=== PATIENT | female | born 1945 | race Caucasian/White ===

== ENCOUNTER 2017-05-31 17:06 | Emergency (ER) | payer OTHER ==
[~2017-05-31] VITALS: Ht 162.6 cm; Wt 105.1 kg
[~2017-05-31 17:06] MED LIST: AMLODIPINE BESYL5 MG PO; ASPIRIN81 M2 PO; BENICAR20 MG PO; DIAZEPAM10 MG PO; DIFICID200 MG PO; DILAUDID4 MG PO; DOCUSATE SODIU100 MG PO; DUONEB 2.5-0.5 M3 ML AEROSOL; ELIQUIS5 MG PO; FLORASTOR250 MG PO; HYDROCODON-ACE1 EAC8 PO; IRBESARTAN300 MG PO; LEVOTHYROXINE75 MCG PO; LOSARTAN POTAS100 MG PO; MELOXICAM7.5 MG PO; MILK OF MAGNESI10 ML PO; OXYCODONE HCL5 MG PO; PANTOPRAZOLE SO40 MG PO; PROTONIX40 MG PO; SERTRALINE HCL50 MG PO; SYNTHROID75 MCG PO; TEMAZEPAM30 MG PO; VICODIN ES 7.51 EAC1 PO; ZOFRAN4 MG PO; ZOLPIDEM TARTRAT5 MG PO
[2017-05-31] MEDS ORDERED: NAPROSYN500 MG PO (21:00)
[2017-05-31 21:51] VITALS: BP 141/83
== END 2017-05-31 21:52 | disposition home or self-care (01) ==
LOC: EME 17:06
DX: I80.8 Phlebitis and thrombophlebitis of other sites (principal); Z86.718 Personal history of other venous thrombosis and embolism; Z79.01 Long term (current) use of anticoagulants; I10 Essential (primary) hypertension; F32.9 Major depressive disorder, single episode, unspecified; F41.9 Anxiety disorder, unspecified; K21.9 Gastro-esophageal reflux disease without esophagitis; Z87.891 Personal history of nicotine dependence
CPT/HCPCS: 93971; 99281; 99284

== ENCOUNTER 2017-07-27 10:34 | Inpatient (IN) | payer OTHER ==
[~2017-07-27] VITALS: Ht 162.6 cm; Wt 104.0 kg
[~2017-07-27 10:34] MED LIST changes: +NAPROSYN500 MG PO
[2017-07-27 11:15] LABS: HEMATOCRIT 39.7 % (36.0-46.0); HEMOGLOBIN 12.4 G/DL (11.9-15.5); MCH 28.3 PG (29.0-34.0); MCHC 31.2 G/DL (30.0-36.0); MCV 90.6 FL (83-99); NRBC (%) 0.6 /100 WBC (0-0); PLATELET COUNT 333 K/uL (156-360); RBC DIS.WIDTH-SD 47.9 % (39-53); RED BLOOD COUNT 4.38 M/uL (3.80-5.20); WHITE BLOOD COUNT 8.5 K/uL (4.1-10.2)
[2017-07-27 11:24] LABS: ALBUMIN 4.4 g/dL (3.2-4.8); CHLORIDE 103 mEq/L (99-109); POTASSIUM 4.8 mEq/L (3.7-5.4); SODIUM 141 mEq/L (136-147)
[2017-07-27 11:25] LABS: MAGNESIUM 2.1 mg/dL (1.3-2.7)
[2017-07-27 11:26] LABS: GLUCOSE 100 mg/dL (70-99); TOTAL PROTEIN 7.9 g/dL (6.4-8.3)
[2017-07-27 11:28] LABS: TOTAL BILIRUBIN 0.4 mg/dL (0.0-1.0)
[2017-07-27 11:30] LABS: ALKALINE PHOSPHATASE 94 IU/L (3-129); CREATININE 0.9 mg/dL (0.6-1.3); GFR ESTIMATE (CALCULATED) > 59 mL/min/
[2017-07-27 11:31] LABS: UREA NITROGEN (BUN) 12 mg/dL (9-23)
[2017-07-27 11:32] LABS: AST (GOT) 14 IU/L (2-34)
[2017-07-27 11:33] LABS: ALT (GPT) 9 IU/L (3-49)
[2017-07-27 11:35] LABS: TROP-I INTERPRETATION NEGATIVE; TROPONIN-I < 0.01 ng/mL (0.0-0.30)
[2017-07-27 11:56] LABS: ABS NEUTROPHIL COUNT 6.9; ANISOCYTOSIS 2+; ATYPICAL LYMPHOCYTE 2.6 %; BAND NEUTROPHILS 6.1 % (0-8.0); BASOPHILS 0.9 %; EOSINOPHIL ABS CT 0.1; EOSINOPHILS 0.9 % (0-5.0); LYMPHOCYTES 3.5 % (15.0-45.0); MACROCYTES 1+; METAMYELOCYTES 1.8 %; MICROCYTOSIS 1+; MONOCYTES 8.8 % (0-9.0); OVALOCYTES 1+; PLAT.SUFFICIENCY INCREASED; POLYCHROMASIA 2+; SEG.NEUTROPHILS 75.4 % (46.0-76.0); TEAR DROP CELLS 1+
[2017-07-27] MEDS ORDERED: VALIUM10 MG PO (14:19)
[2017-07-27] MEDS ORDERED: ULTRAM50 MG PO (14:20)
[2017-07-27] MEDS ORDERED: ROBITUSSIN100 MG/5 M PO (14:21)
[2017-07-27] MEDS ORDERED: AMOXICILLIN500 M1 PO (14:21)
[2017-07-27] MEDS ORDERED: LO-DOSE ASPIRIN81 M2 PO (14:21)
[2017-07-27] MEDS ORDERED: AVAPRO300 MG PO (14:21)
[2017-07-27] MEDS ORDERED: LOPID600 MG PO (14:22)
[2017-07-27 18:40] VITALS: BP 127/95
[2017-07-27 20:49] VITALS: BP 154/67
[2017-07-27 23:52] VITALS: BP 141/86
[2017-07-28 03:37] VITALS: BP 136/78
[2017-07-28 07:41] LABS: TROP-I INTERPRETATION NEGATIVE; TROPONIN-I < 0.01 ng/mL (0.0-0.30)
[2017-07-28 08:33] VITALS: BP 163/66
[2017-07-28 10:26] LABS: BASOPHIL (%) 0.3 % (0-1); EOSINOPHIL (%) 0 % (0-5); HEMATOCRIT 38.2 % (36.0-46.0); HEMOGLOBIN 11.6 G/DL (11.9-15.5); IMMATURE GRANULOCYTE (%) 4.7 % (0.0-0.7); LYMPHOCYTE (%) 5.4 % (15-42); LYMPHOCYTE COUNT 0.4 K/uL (1.0-2.8); MCHC 30.4 G/DL (30.0-36.0); MCV 92.3 FL (83-99); MONOCYTE (%) 1.4 % (3-12); MONOCYTE COUNT 0.1 K/uL (0-0.8); NEUTROPHIL (%) 88.2 % (45-76); PLATELET COUNT 350 K/uL (156-360); RBC DIS.WIDTH-SD 49.5 % (39-53); RED BLOOD COUNT 4.14 M/uL (3.80-5.20); WHITE BLOOD COUNT 7.9 K/uL (4.1-10.2)
[2017-07-28 10:38] LABS: CHLORIDE 101 MEQ/L (99-109); CREATININE 0.9 MG/DL (0.6-1.3); GFR ESTIMATE (CALCULATED) > 59 mL/min/; GLUCOSE 143 mg/dL (70-99); POTASSIUM 4.9 MEQ/L (3.7-5.4); SODIUM 140 MEQ/L (136-147); UREA NITROGEN (BUN) 15 mg/dL (9-23)
[2017-07-28 15:51] VITALS: BP 126/68
[2017-07-28 19:32] VITALS: BP 135/63
[2017-07-28 23:04] VITALS: BP 160/70
[2017-07-29 03:22] VITALS: BP 127/60
[2017-07-29 07:15] VITALS: BP 151/71
[2017-07-29 15:24] VITALS: BP 158/75
[2017-07-29 19:12] VITALS: BP 142/71
[2017-07-29 23:32] VITALS: BP 133/68
[2017-07-30 03:48] VITALS: BP 168/78
[2017-07-30 05:00] VITALS: BP 154/75
[2017-07-30 07:24] VITALS: BP 149/68
[2017-07-30 15:36] VITALS: BP 140/65
[2017-07-31 08:33] VITALS: BP 148/74
[2017-07-31 09:38] LABS: HEMATOCRIT 40.7 % (36.0-46.0); HEMOGLOBIN 12.3 G/DL (11.9-15.5); MCH 27.7 PG (29.0-34.0); MCHC 30.2 G/DL (30.0-36.0); MCV 91.7 FL (83-99); PLATELET COUNT 376 K/uL (156-360); RBC DIS.WIDTH-CV 15.4 % (11.8-14.6); RBC DIS.WIDTH-SD 51.4 % (39-53); RED BLOOD COUNT 4.44 M/uL (3.80-5.20); WHITE BLOOD COUNT 14.4 K/uL (4.1-10.2)
[2017-07-31 10:26] LABS: CHLORIDE 100 MEQ/L (99-109); CREATININE 0.7 MG/DL (0.6-1.3); GFR ESTIMATE (CALCULATED) > 59 mL/min/; GLUCOSE 178 mg/dL (70-99); POTASSIUM 4.5 MEQ/L (3.7-5.4); SODIUM 139 MEQ/L (136-147); UREA NITROGEN (BUN) 18 mg/dL (9-23)
[2017-07-31 16:32] VITALS: BP 176/80
[2017-07-31 23:12] VITALS: BP 154/71
[2017-08-01 09:19] VITALS: BP 157/79
[2017-08-01 15:38] VITALS: BP 150/73
[2017-08-02] VITALS: BP 145/72
[2017-08-02 07:46] VITALS: BP 153/85
[2017-08-02 11:21] VITALS: BP 160/76
[2017-08-02 15:44] VITALS: BP 129/62
[2017-08-02 23:42] VITALS: BP 153/73
[2017-08-03 06:55] VITALS: BP 130/78
[2017-08-03 17:39] VITALS: BP 159/76
[2017-08-03 23:55] VITALS: BP 142/83
[2017-08-04 07:11] LABS: HEMOGLOBIN 11.9 G/DL (11.9-15.5); MCH 27.3 PG (29.0-34.0); MCHC 30.5 G/DL (30.0-36.0); MCV 89.4 FL (83-99); PLATELET COUNT 351 K/uL (156-360); RBC DIS.WIDTH-CV 14.2 % (11.8-14.6); RBC DIS.WIDTH-SD 46.2 % (39-53); RED BLOOD COUNT 4.36 M/uL (3.80-5.20); WHITE BLOOD COUNT 12.3 K/uL (4.1-10.2)
[2017-08-04 07:40] LABS: ALBUMIN 4.1 G/DL (3.2-4.8); ALKALINE PHOSPHATASE 54 IU/L (3-129); ALT (GPT) 21 IU/L (3-49); AST (GOT) 13 IU/L (2-34); CHLORIDE 98 MEQ/L (99-109); CREATININE 0.6 MG/DL (0.6-1.3); GFR ESTIMATE (CALCULATED) > 59 mL/min/; GLUCOSE 91 mg/dL (70-99); POTASSIUM 5.1 MEQ/L (3.7-5.4); SODIUM 138 MEQ/L (136-147); TOTAL BILIRUBIN 0.3 MG/DL (0.0-1.0); TOTAL PROTEIN 6.1 G/DL (6.4-8.3); UREA NITROGEN (BUN) 18 mg/dL (9-23)
[2017-08-04 08:00] VITALS: BP 154/67
[2017-08-04 16:00] VITALS: BP 148/72
[2017-08-04 23:51] VITALS: BP 137/67
[2017-08-05 08:18] LABS: BASE EXCESS 9.4 mEq/L (-3 to +3); BICARBONATE 34.8 mEq/L (22-26); COMMENTS - BLOOD GASES A+C+; DEVICE RA; METHEMOGLOBIN 1.7 % (0-1.5); PCO2 50 mm Hg (35-45); PO2 59 mm Hg (80-100); SITE LR; TOTAL RESP RATE 16 resp/min; pH 7.45 (7.35-7.45)
[2017-08-05 10:07] VITALS: BP 144/67
[2017-08-05 17:00] VITALS: BP 148/64
[2017-08-05] MEDS ORDERED: DUONEB 2.5-0.5 M3 ML AEROSOL (19:10)
[2017-08-05] MEDS ORDERED: AUGMENTIN500 MG PO (19:11)
[2017-08-05] MEDS ORDERED: SPIRIVA RESPIMAT4 GM IH (19:11)
== END 2017-08-05 19:50 | disposition home health service (06) | DRG 193 ==
LOC: EME 10:34 → EDOF 15:16 → 2EAST 15:16 → ENRESERV 15:18 → 2EAST 17:02
PROVIDERS: Emergency Medicine; Family Medicine; Internal Medicine
DX: J18.9 Pneumonia, unspecified organism (principal); J96.01 Acute respiratory failure with hypoxia; J44.0 Chronic obstructive pulmonary disease with (acute) lower respiratory infection; J44.1 Chronic obstructive pulmonary disease with (acute) exacerbation; J20.9 Acute bronchitis, unspecified; R10.11 Right upper quadrant pain; I10 Essential (primary) hypertension; K21.9 Gastro-esophageal reflux disease without esophagitis; E89.0 Postprocedural hypothyroidism; F32.9 Major depressive disorder, single episode, unspecified; F41.9 Anxiety disorder, unspecified; M19.90 Unspecified osteoarthritis, unspecified site; E66.9 Obesity, unspecified; Z68.39 Body mass index [BMI] 39.0-39.9, adult; Z86.711 Personal history of pulmonary embolism; Z87.891 Personal history of nicotine dependence
CPT/HCPCS: 36600; 71046; 71101; 71275; 74177; 76705; 80048; 80053; 82803; 83605; 83735; 84484; 85025; 85027; 87040; 93005; 93971; 94640; 94640 76; 94760; 94799; 97530 GP; 99202; 99281; 99285; J0456; J0696; J1650; J2920; J7512